=== PATIENT | male | born 1975 | race Caucasian/White ===

== ENCOUNTER 2021-01-29 13:26 | Emergency (ER) | payer BC ==
--- NOTE | 2021-01-29 14:23 | CR ---
HISTORY: Small finger injury. TECHNIQUE: Three views of the right hand. COMPARISON: No prior. FINDINGS: There is an acute mildly displaced and moderately angulated fracture involving the proximal aspect of the proximal phalanx of the 5th finger of the right hand. Fracture involves the metaphysis and a portion of the epiphysis. There does not appear to be displacement at the proximal articular surface. Osseous structures are otherwise intact. Joint spaces maintained. No erosive change. No radiopaque foreign body or soft tissue gas. IMPRESSION: Acute displaced and angulated fracture of the proximal aspect of the proximal phalanx of the 5th finger of the right hand. Dictated by Oneil Gutierrez MD @ 01/29/2021 2:22:49 PM (Electronically Signed)
--- NOTE | 2021-01-29 18:02 | EDM.PDOC ---
ED HPI GENERAL MEDICAL PROBLEM - General Chief Complaint: Upper Extremity Injury/Pain Stated Complaint: BROKEN FINGER Time Seen by Provider: 01/29/21 15:19 Source of Information: Reports: Patient History Limitations: Reports: No Limitations - History of Present Illness INITIAL COMMENTS - FREE TEXT/NARRATIVE: 45-year-old male presents for finger injury. Patient injured his right fifth digit falling on a crate. Denies other injury Social & Family History - Family History Family Medical History: No Pertinent Family History - Tobacco Use Tobacco Use Status *Q: Current Every Day Tobacco User Years of Tobacco use: 20 Packs/Tins Daily: 1 - Caffeine Use Caffeine Use: Reports: None - Recreational Drug Use Recreational Drug Use: No Review of Systems - Review of Systems Review Of Systems: Comprehensive ROS is negative, except as noted in HPI. ED EXAM, GENERAL - Physical Exam Exam: See Below Exam Limited By: No Limitations General Appearance: Alert, WD/WN, No Apparent Distress Ears: Hearing Grossly Normal Throat/Mouth: Normal Voice, No Airway Compromise Head: Atraumatic, Normocephalic Respiratory/Chest: No Respiratory Distress, No Accessory Muscle Use Cardiovascular: Normal Peripheral Pulses Extremities: Other (deformity of R 5th digit with normal neurovascular exam) Neurological: Alert, Normal Cognition, Normal Gait Psychiatric: Normal Affect, Normal Mood Skin Exam: Warm, Dry, Intact, Normal Color Course - Vital Signs Last Recorded V/S: Last Vital Signs Temp 97.6 F 01/29/21 16:42 Pulse 98 01/29/21 16:42 Resp 18 01/29/21 16:42 BP 143/99 H 01/29/21 16:42 Pulse Ox 98 01/29/21 16:42 - Orders/Labs/Meds Orders: Active Orders 24 hr Category Date Time Status Splinting [RC] ASDIRECTED Care 01/29/21 18:02 Active Fingers Thumb Rt F5 [CR] Stat Exams 01/29/21 18:01 Ordered Meds: Medications Discontinued Medications Generic Name Dose Route Start Last Admin Trade Name Cindy PRN Reason Stop Dose Admin Lidocaine HCl 10 ml 01/29/21 17:38 01/29/21 17:41 Lidocaine 1% 5 Ml Sdv INJECT 01/29/21 17:39 10 ml ONETIME ONE Administration - Re-Assessments/Exams Free Text/Narrative Re-Assessment/Exam: 01/29/21 18:13 A digital block was performed on the right fifth digit and it was reduced utilizing traction. There were no complications. Postreduction film is mildly improved. Will discharge with orthopedic follow-up Departure - Departure Time of Disposition: 18:13 Disposition: Home, Self-Care 01 Condition: Good Clinical Impression: Finger fracture, right Qualifiers: Encounter type: initial encounter Finger: little finger Fracture type: closed Phalanx: unspecified phalanx Fracture alignment: displaced Qualified Code(s): S62.606A - Fracture of unspecified phalanx of right little finger, initial encounter for closed fracture - Discharge Information Instructions: Finger Fracture, Adult, [id number] Referrals: PCP,None [Primary Care Provider] - Forms: ED Department Discharge Additional Instructions: Please follow-up with primary care or orthopedic physician. [facility] [address], [address] [place] [address] The following information is given to patients seen in the emergency department who are being discharged to home. This information is to outline your options for follow-up care. We provide all patients seen in our emergency department with a follow-up referral. The need for follow-up, as well as the timing and circumstances, are variable depending upon the specifics of your emergency department visit. If you don't have a primary care physician on staff, we will provide you with a referral. We always advise you to contact your personal physician following an emergency department visit to inform them of the circumstance of the visit and for follow-up with them and/or the need for any referrals to a consulting specialist. The emergency department will also refer you to a specialist when appropriate. This referral assures that you have the opportunity for follow-up care with a specialist. All of these measure are taken in an effort to provide you with optimal care, which includes your follow-up. Under all circumstances we always encourage you to contact your private physician who remains a resource for coordinating your care. When calling for follow-up care, please make the office aware that this follow-up is from your recent emergency room visit. If for any reason you are refused follow-up, please contact the [facility] Emergency Department at and asked to speak to the emergency department charge nurse. Please follow up with your primary care physician. If you do not have a primary care physician, see below: [facility] [address] [place], [place] [id number] [facility] [address] [place] [address] [facility] [address] [place] [address] Sepsis Event Note (ED) - Focused Exam Vital Signs: Vital Signs Temp Pulse Resp BP Pulse Ox 01/29/21 16:42 97.6 F 98 18 143/99 H 98 - My Orders Last 24 Hours: My Active Orders 01/29/21 18:01 Fingers Thumb Rt F5 [CR] Stat 01/29/21 18:02 Splinting [RC] ASDIRECTED - Assessment/Plan Last 24 Hours: My Active Orders 01/29/21 18:01 Fingers Thumb Rt F5 [CR] Stat 01/29/21 18:02 Splinting [RC] ASDIRECTED
--- NOTE | 2021-01-29 18:46 | CR ---
INDICATION: Post reduction. COMPARISON: 1:58 p.m. 01/29/2021 right hand radiographs. FINDINGS/IMPRESSION: Right 5th finger, three views. Mildly impacted nondisplaced fracture of the base of the proximal phalanx of the 5th finger shows interval improvement in previously seen angulation such that alignment is now near anatomic. No dislocation is noted. Dictated by Dick Aldana MD @ 01/29/2021 6:45:34 PM Dictated by: Dick Aldana MD @ 01/29/2021 18:45:54 (Electronically Signed)
== END 2021-01-29 18:32 | disposition home or self-care (01) ==
LOC: MW.ED 13:26
DX: S62.616A Displaced fracture of proximal phalanx of right little finger, initial encounter for closed fracture (principal); Z72.0 Tobacco use; W18.30XA Fall on same level, unspecified, initial encounter
CPT/HCPCS: 26725; 73130-26-RT; 73130-RT; 73140-26-F9; 73140-F9; 99283-25